=== PATIENT | male | born 1980 | race Hispanic/Latino ===

== ENCOUNTER 2018-01-14 21:35 | Emergency (ER) | payer MEDICAID ==
[2018-01-15 00:05] LABS: Basophils % (Auto) 0.3 % (0.0-1.8); Eosinophils # (Auto) 0.3 K/mm3 (0.0-0.4); Eosinophils % (Auto) 3.2 % (0.0-4.3); Hematocrit 48.4 % (35.5-45.6); Hemoglobin 16.2 gm/dl (11.8-15.2); Lymphocytes # (Auto) 3.9 K/mm3 (1.2-5.4); Lymphocytes % (Auto) 46.3 % (13.4-35.0); Mean Corpuscular HGB Conc 34 % (32-34); Mean Corpuscular Hemoglobin 33 pg (28-32); Mean Corpuscular Volume 98 fl (84-94); Monocytes # (Auto) 0.8 K/mm3 (0.0-0.8); Monocytes % (Auto) 9.7 % (0.0-7.3); Platelet Count 239 K/mm3 (140-440); Red Blood Count 4.93 M/mm3 (3.65-5.03); Red Cell Distribution Width 14.4 % (13.2-15.2)
[2018-01-15 00:20] LABS: Alanine Aminotransferase 15 units/L (7-56); Albumin 4.5 g/dL (3.9-5); BUN/Creatinine Ratio 16; Blood Urea Nitrogen 13 mg/dL (9-20); Calcium 9.4 mg/dL (8.4-10.2); Hemolysis Index 14; Lipase 21 units/L (13-60)
[2018-01-15] MEDS ORDERED: LOMOTIL PO ONE (07:23)
[2018-01-15] MEDS ORDERED: ZOFRAN IV ONE (07:23)
[2018-01-15] MEDS ORDERED: NACL 0.9% 1000 ML 1,000 ML ONE (07:29)
[2018-01-15] MEDS ORDERED: NACL 0.9% 1000 ML 1,000 ML IV ONE (07:30)
[2018-01-15 07:59] LABS: Bacteria,Urine 1+ /HPF (Negative); Bilirubin,Urine NEG (Negative); Blood,Urine NEG (Negative); Color,Urine Yellow (Yellow); Mucus,Urine FEW /HPF; Protein,Urine <15 mg/dL mg/dL (Negative); Urobilinogen,Urine < 2.0 mg/dL (<2.0)
--- NOTE | 2018-01-15 08:32 | Emergency Department Report ---
HPI - General Chief Complaint: Abdominal Pain Time Seen by Provider: 01/15/18 07:22 - HPI HPI: 37-year-old male presents to ED with nausea, vomiting, diarrhea times one day. No fever, chills or night sweats. Patient has not taking any medication for his symptoms. Has been around other people with similar symptoms. Diarrhea is nonbloody. Diarrhea consistent stool 3-4 times daily for the past 2 days.. ED Past Medical Hx - Past Medical History Hx Hypertension: Yes Hx Heart Attack/AMI: No Hx Congestive Heart Failure: No Hx Diabetes: No Hx Deep Vein Thrombosis: No Hx Pulmonary Embolism: No Hx GERD: Yes Hx Sickle Cell Disease: No Hx Arthritis: Yes Hx Headaches / Migraines: No Hx Seizures: No Hx Asthma: No Hx COPD: No Hx Tuberculosis: No Hx Dementia: No Hx HIV: Yes (2000) Additional medical history: PARAPLEPHGIC - Surgical History Hx Coronary Stent: No Hx Pacemaker: No Hx Internal Defibrillator: No - Social History Smoking Status: Current Every Day Smoker Substance Use Type: None - Medications Home Medications: Home Medications Medication Instructions Recorded Confirmed Last Taken Type diphenhydrAMINE [Benadryl CAP] 25 mg PO Q8H PRN #30 capsule 01/06/18 Unknown Rx Ondansetron [Zofran Odt] 4 mg PO ACHS PRN #15 tab.rapdis 01/15/18 Unknown Rx diphenhydrAMINE/ZINC 2% [Banophen 1 applic TP Q6H PRN #1 tube 01/15/18 Unknown Rx Anti-Itch] ED Review of Systems ROS: Stated complaint: DIARRHEA Other details as noted in HPI Physical Exam - Physical Exam Vital Signs: Vital Signs 01/14/18 01/14/18 01/14/18 22:10 22:22 23:20 Temperature 97.8 F 98.4 F 97.8 F Pulse Rate 75 79 71 Respiratory 16 16 Rate Blood Pressure 106/82 113/78 106/82 Blood Pressure [Right] O2 Sat by Pulse 92 100 100 Oximetry 01/15/18 01/15/18 01/15/18 04:10 04:15 04:16 Temperature 97.5 F L Pulse Rate 54 L Respiratory 16 Rate Blood Pressure 104/59 Blood Pressure 104/59 [Right] O2 Sat by Pulse 99 99 99 Oximetry 01/15/18 01/15/18 01/15/18 04:30 04:45 05:00 Temperature Pulse Rate Respiratory Rate Blood Pressure 94/52 93/50 Blood Pressure [Right] O2 Sat by Pulse 99 100 100 Oximetry 01/15/18 01/15/18 01/15/18 05:16 05:30 05:46 Temperature Pulse Rate Respiratory Rate Blood Pressure 104/61 102/46 103/82 Blood Pressure [Right] O2 Sat by Pulse 99 94 100 Oximetry 01/15/18 01/15/18 01/15/18 06:00 06:16 06:30 Temperature Pulse Rate Respiratory Rate Blood Pressure 110/56 109/62 109/70 Blood Pressure [Right] O2 Sat by Pulse 100 100 100 Oximetry 01/15/18 01/15/18 06:45 08:00 Temperature Pulse Rate 60 Respiratory Rate Blood Pressure 109/77 Blood Pressure [Right] O2 Sat by Pulse 99 Oximetry Physical Exam: - Physical Exam Physical Exam: - General Limitations: No Limitations General appearance: alert, in no apparent distress, - Head Head exam: Present: atraumatic, normocephalic - Eye Eye exam: Present: normal appearance - ENT ENT exam: Present: mucous membranes moist - Neck Neck exam: Present: normal inspection - Respiratory Respiratory exam: Present: normal lung sounds bilaterally. Absent: respiratory distress - Cardiovascular Cardiovascular Exam: Present: normal rhythm, tachycardia. Absent: systolic murmur, diastolic murmur, rubs, gallop - GI/Abdominal GI/Abdominal exam: Present: soft, normal bowel sounds - Extremities Exam Extremities exam: Present: Paraplegia - Back Exam Back exam: Present: normal inspection - Neurological Exam Neurological exam: Present: alert, oriented X3 - Psychiatric Psychiatric exam: normal affect and mood - Skin Skin exam: Present: warm, dry, intact, normal color. Absent: rash ED Course Vital Signs 01/14/18 01/14/18 01/14/18 22:10 22:22 23:20 Temperature 97.8 F 98.4 F 97.8 F Pulse Rate 75 79 71 Respiratory 16 16 Rate Blood Pressure 106/82 113/78 106/82 Blood Pressure [Right] O2 Sat by Pulse 92 100 100 Oximetry 01/15/18 01/15/18 01/15/18 04:10 04:15 04:16 Temperature 97.5 F L Pulse Rate 54 L Respiratory 16 Rate Blood Pressure 104/59 Blood Pressure 104/59 [Right] O2 Sat by Pulse 99 99 99 Oximetry 01/15/18 01/15/18 01/15/18 04:30 04:45 05:00 Temperature Pulse Rate Respiratory Rate Blood Pressure 94/52 93/50 Blood Pressure [Right] O2 Sat by Pulse 99 100 100 Oximetry 01/15/18 01/15/18 01/15/18 05:16 05:30 05:46 Temperature Pulse Rate Respiratory Rate Blood Pressure 104/61 102/46 103/82 Blood Pressure [Right] O2 Sat by Pulse 99 94 100 Oximetry 01/15/18 01/15/18 01/15/18 06:00 06:16 06:30 Temperature Pulse Rate Respiratory Rate Blood Pressure 110/56 109/62 109/70 Blood Pressure [Right] O2 Sat by Pulse 100 100 100 Oximetry 01/15/18 01/15/18 06:45 08:00 Temperature Pulse Rate 60 Respiratory Rate Blood Pressure 109/77 Blood Pressure [Right] O2 Sat by Pulse 99 Oximetry ED Medical Decision Making - Lab Data Result diagrams: 01/14/18 23:50 01/14/18 23:50 Critical care attestation.: If time is entered above; I have spent that time in minutes in the direct care of this critically ill patient, excluding procedure time. ED Disposition Clinical Impression: Gastroenteritis, Dermatitis Disposition: DC-01 TO HOME OR SELFCARE Is pt being admited?: No Does the pt Need Aspirin: No Condition: Stable Instructions: Chest Pain (ED), Eczema (ED) Prescriptions: diphenhydrAMINE/ZINC 2% [Banophen Anti-Itch] 1 applic TP Q6H PRN #1 tube PRN Reason: Itching Ondansetron [Zofran Odt] 4 mg PO ACHS PRN #15 tab.rapdis PRN Reason: Nausea And Vomiting Referrals: PRIMARY CARE,MD [Primary Care Provider] - 3-5 Days
[2018-01-15 09:13] VITALS: BP 113/79
== END 2018-01-15 11:05 | disposition home or self-care (01) ==
LOC: ED 21:35
DX: K52.9 Noninfective gastroenteritis and colitis, unspecified (principal); L30.9 Dermatitis, unspecified; I10 Essential (primary) hypertension; M19.90 Unspecified osteoarthritis, unspecified site; F17.200 Nicotine dependence, unspecified, uncomplicated
CPT/HCPCS: 36415; 80053; 81001; 83690; 85025; 96361; 96374; 99284; J2405; J7030